=== PATIENT | female | born 1985 | race Caucasian/White ===

== ENCOUNTER → 2016-08-17 | Outpatient (REF) | payer OTHER ==
[~2016-08-17] MED LIST: ADVI200T PO; ANUS2.5C2 PR; COLA100C PO; FEOS200T2 PO; MOM30SS FT; NUVAMIS2 VA; PRENTAB7 PO; TRAN200T PO; TYLE167L PO
== END ==
LOC: M LAB REF 17:11
PROVIDERS: ATTEND Physician Assistant Medical
DX: B34.9 Viral infection, unspecified (principal)

== ENCOUNTER 2017-01-18 18:56 | Emergency (ER) | payer OTHER ==
[~2017-01-18] VITALS: Ht 157.5 cm; Wt 90.4 kg
[~2017-01-18 18:56] MED LIST changes: -COLA100C PO; +COLA100C5 PO
[2017-01-18] MEDS ORDERED: LISI-538 (19:03)
[2017-01-18] MEDS ORDERED: OXYCODONE/APAP 5MG/325MG(BULK FOR ED) 1 TABLET PO ONE (21:15)
[2017-01-18] MEDS ORDERED: PERC5TAB12 PO (21:15)
[2017-01-18] MEDS ORDERED: CLEO300C2 PO (21:15)
[2017-01-18] MEDS ORDERED: LIDOCAINE VISCOUS 2% SOLN 15ML UDC TOP ONE (21:15)
[2017-01-18 21:29] VITALS: BP 178/110
== END 2017-01-18 21:40 | disposition home or self-care (01) ==
LOC: M ED 18:56
DX: K04.7 Periapical abscess without sinus (principal); I10 Essential (primary) hypertension; Z88.0 Allergy status to penicillin

== ENCOUNTER 2017-05-20 19:48 | Emergency (ER) | payer OTHER ==
[~2017-05-20] VITALS: Ht 157.5 cm; Wt 86.4 kg
[2017-05-20 19:48] VITALS: BP 149/88
[~2017-05-20 19:48] MED LIST changes: +CLEO300C2 PO; +LISI-538; +PERC5TAB12 PO
[2017-05-20] MEDS ORDERED: VENL75CA47 PO (20:07)
[2017-05-20] MEDS ORDERED: AMLO5TAB2 PO (20:07)
== END 2017-05-20 21:45 | disposition left against medical advice (07) ==
LOC: M ED 19:48
DX: R10.9 Unspecified abdominal pain (principal); Z53.21 Procedure and treatment not carried out due to patient leaving prior to being seen by health care provider

== ENCOUNTER → 2018-05-24 | Outpatient (REF) | payer OTHER ==
[2018-05-24 14:24] LABS: INFLUENZA A AMPLIFICATION NEGATIVE (NEGATIVE); INFLUENZA B AMPLIFICATION NEGATIVE (NEGATIVE)
== END ==
LOC: M LAB REF 13:33
DX: J11.1 Influenza due to unidentified influenza virus with other respiratory manifestations (principal)

== ENCOUNTER → 2018-07-30 | Outpatient (CLI) | payer OTHER ==
[~2018-07-30] MED LIST changes: +AMLO5TAB6 PO; +VENL75CA47 PO
--- NOTE | 2018-07-30 19:14 | REP ---
Lumbar spine six views History: Back pain There is no acute fracture or subluxation. The intervertebral discs are normal in height. The facet joints are normal in appearance. Impression: There is no acute fracture or subluxation. Electronically Signed by Mendoza Carlin MD 07/30/2018 07:05 P
== END ==
LOC: M WUC 18:40
PROVIDERS: ATTEND Physician Assistant
DX: M54.5 Low back pain (principal)

== ENCOUNTER → 2018-10-15 | Outpatient (REF) | payer OTHER ==
[~2018-10-15] MED LIST changes: +IBUP-1022 PO; +NIFE60TA6 PO
[2018-10-15 14:58] LABS: ALBUMIN 4.3 GM/DL (3.2-5.2); ALT/SGPT 18 U/L (12-78); BILIRUBIN,TOTAL 0.4 MG/DL (0.2-1.0); BLOOD UREA NITROGEN 9 MG/DL (7-18); CARBON DIOXIDE LEVEL 25 MEQ/L (21-32); CHLORIDE LEVEL 103 MEQ/L (98-107); CHOLESTEROL LEVEL 233 MG/DL (<200); CHOLESTEROL RISK RATIO 7.281 (<5); CREATININE FOR GFR 0.64 MG/DL (0.55-1.30); GLOMERULAR FILTRATION RATE > 60.0 (>60); GLUCOSE, FASTING 90 MG/DL (70-100); HDL CHOLESTEROL 32 MG/DL (>40); LDL CHOLESTEROL 140 MG/DL (<100); NON-HDL-C 201 MG/DL; POTASSIUM SERUM 3.8 MEQ/L (3.5-5.1); SODIUM LEVEL 136 MEQ/L (136-145); THYROID STIMULATING HORMONE 0.922 uIU/ML (0.358-3.740); TOTAL 25(OH) VITAMIN D 15.6 NG/ML (30.0-100.0); TOTAL PROTEIN 7.4 GM/DL (6.4-8.2); TRIGLYCERIDES LEVEL 306 MG/DL (<150)
== END ==
LOC: M LABDRAW1 13:21
PROVIDERS: ATTEND Nurse Practitioner Adult Health
DX: Z00.01 Encounter for general adult medical examination with abnormal findings (principal)

== ENCOUNTER 2018-10-18 14:21 | Emergency (ER) | payer OTHER ==
[~2018-10-18] VITALS: Ht 157.5 cm; Wt 91.2 kg
[~2018-10-18 14:21] MED LIST changes: -IBUP-1022 PO; -NIFE60TA6 PO
[2018-10-18] MEDS ORDERED: NIFE60TA6 PO (14:29)
[2018-10-18] MEDS ORDERED: NACL IV ONE (15:15)
[2018-10-18] MEDS ORDERED: KETAMINE IV ONE (15:15)
[2018-10-18] MEDS ORDERED: KETOROLAC 30 MG/ML VIAL (J1885) IV ONE (15:15)
[2018-10-18] MEDS ORDERED: ACETAMINOPHEN 500 MG TAB PO ONE (15:15)
[2018-10-18] MEDS ORDERED: DILUENT IV ONE (15:15)
[2018-10-18] MEDS ORDERED: ONDANSETRON 4MG/2ML VIAL (J2405) IV ONE (15:15)
--- NOTE | 2018-10-18 15:19 | REP ---
CT Head without contrast HISTORY: Headache COMPARISON: 06/12/2012 There is no intraparenchymal hemorrhage, acute infarct, mass or midline shift. The ventricular system is normal in appearance. There is no extra cerebral collection. There is no fracture. The visualized sinuses are clear. IMPRESSION: There is no intracranial lesion. Electronically Signed by Mendoza Carlin MD 10/18/2018 03:11 P
[2018-10-18] MEDS ORDERED: IBUP-1022 PO (16:39)
[2018-10-18 17:00] VITALS: BP 124/73
== END 2018-10-18 17:29 | disposition home or self-care (01) ==
LOC: M ED 14:21
DX: G43.909 Migraine, unspecified, not intractable, without status migrainosus (principal); I10 Essential (primary) hypertension; Z79.899 Other long term (current) drug therapy; Z88.0 Allergy status to penicillin
CPT/HCPCS: 70450; 96374; 96375; 99284; J1885; J2405

== ENCOUNTER 2019-01-18 12:41 | Emergency (ER) | payer OTHER ==
[~2019-01-18] VITALS: Ht 157.5 cm; Wt 86.4 kg
[~2019-01-18 12:41] MED LIST changes: +IBUP-1022 PO; +NIFE60TA6 PO
[2019-01-18] MEDS ORDERED: MELO15TA28 (12:51)
[2019-01-18] MEDS ORDERED: DULO1CAP4 (12:51)
[2019-01-18 13:39] LABS: BASO % 0.1 % (0.0-1.0); EOS % 0.4 % (0.0-3.0); HEMATOCRIT 35.8 % (36.0-47.0); HEMOGLOBIN 12.1 g/dl (12.0-15.5); LYMPH # 1.7 10^3/uL (1.5-4.5); LYMPH % 22.1 % (24.0-44.0); MEAN CORPUSCULAR HEMOGLOBIN 26.5 pg (27.0-33.0); MEAN CORPUSCULAR HGB CONC 33.8 g/dl (32.0-36.5); MEAN CORPUSCULAR VOLUME 78.5 fl (80.0-96.0); MONO # 0.3 10^3/uL (0.0-0.8); MONO % 4.4 % (0.0-5.0); NEUTROPHILS # 5.4 10^3/uL (1.8-7.7); NEUTROPHILS % 72.7 % (36.0-66.0); PLATELET COUNT, AUTOMATED 353 10^3/uL (150-450); RED BLOOD COUNT 4.56 10^6/uL (4.00-5.40); WHITE BLOOD COUNT 7.5 10^3/uL (4.0-10.0)
[2019-01-18] MEDS ORDERED: NIFEdipine 30 MG XL TAB PO ONE (14:00)
[2019-01-18 14:08] LABS: BLOOD UREA NITROGEN 7 MG/DL (7-18); CALCIUM LEVEL 9.1 MG/DL (8.5-10.1); CARBON DIOXIDE LEVEL 26 MEQ/L (21-32); CHLORIDE LEVEL 102 MEQ/L (98-107); CK-MB VALUE MASS 1.1 NG/ML (<3.6); CPK CREATINE PHOSPHOKINASE 99 U/L (26-192); CREATININE FOR GFR 0.81 MG/DL (0.55-1.30); GLOMERULAR FILTRATION RATE > 60.0 (>60); GLUCOSE, FASTING 155 MG/DL (70-100); MB/CK RELATIVE INDEX 1.11 (< OR =4); NT-PRO BNP 36 PG/ML (<125); POTASSIUM SERUM 3.8 MEQ/L (3.5-5.1); SODIUM LEVEL 137 MEQ/L (136-145); TROPONIN I < 0.02 NG/ML (< 0.10)
[2019-01-18 14:13] LABS: FREE THYROXINE INDEX 2.7 % (1.3-4.8); THYROID STIMULATING HORMONE 0.575 uIU/ML (0.358-3.740)
[2019-01-18 14:40] VITALS: BP 134/84
[2019-01-18 14:45] VITALS: BP 139/89
[2019-01-18] MEDS ORDERED: HYDR-3363 PO (14:46)
--- NOTE | 2019-01-18 15:02 | REP ---
Clinical: Shortness of breath . Comparison: 11/15/2014 . Technique: PA and lateral. Findings: The mediastinum and cardiac silhouette are normal. The lung reed are clear and without acute consolidation, effusion, or pneumothorax. The skeletal structures are intact and normal. Impression: 1. No acute cardiopulmonary process. Electronically Signed by David Singletary MD 01/18/2019 01:43 P
--- NOTE | 2019-01-18 16:49 | ECGEPIP ---
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
== END 2019-01-18 14:58 | disposition home or self-care (01) ==
LOC: M ED 12:41
DX: F41.0 Panic disorder [episodic paroxysmal anxiety] (principal); I10 Essential (primary) hypertension; R00.2 Palpitations; Z87.891 Personal history of nicotine dependence; Z88.0 Allergy status to penicillin; Z79.899 Other long term (current) drug therapy

== ENCOUNTER → 2019-04-17 | Outpatient (REF) | payer OTHER ==
[~2019-04-17] MED LIST changes: +DULO1CAP4; +HYDR-3363 PO; +MELO15TA28
== END ==
LOC: M LAB REF 16:10
PROVIDERS: ATTEND Physician Assistant
DX: R35.0 Frequency of micturition (principal)

== ENCOUNTER 2019-06-17 07:45 | Emergency (ER) | payer OTHER ==
[~2019-06-17] VITALS: Ht 160 cm; Wt 83.2 kg
[2019-06-17] MEDS ORDERED: CEFU1TAB22 (07:53)
[2019-06-17] MEDS ORDERED: ONDANSETRON 4MG/2ML VIAL (J2405) IV ONE (08:30)
--- NOTE | 2019-06-17 08:32 | REP ---
Head CT without contrast: History: CVA. Comparison study: October 18, 2018 and June 12, 2012 prior studies are reviewed. CT findings: Bone window settings demonstrate an intact bony calvarium. There is no evidence of skull fracture or incidental bony calvarial lesion. The visualized paranasal sinuses appear clear. No intraorbital abnormality is seen. On soft tissue window setting images; the lateral, third, and fourth ventricles are normal in size and position. Parra-white differentiation pattern is normal above and below the tentorium. There are is no evidence of intracranial hemorrhage. No mass, edema, infarction, or midline shift is seen. No extra-axial fluid collection is appreciated. Impression: Negative noncontrast head CT. Electronically Signed by Han Martin MD 06/17/2019 08:32 A
[2019-06-17] MEDS: MORPHINE 2 MG/ML 1ML VIAL (J2270) IV PRN ×2 (08:35→09:13)
[2019-06-17 08:38] LABS: BASO % 0.5 % (0.0-1.0); EOS # 0.1 10^3/uL (0.0-0.5); EOS % 2.4 % (0.0-3.0); HEMATOCRIT 33.4 % (36.0-47.0); LYMPH # 1.5 10^3/uL (1.5-5.0); LYMPH % 40.1 % (24.0-44.0); MEAN CORPUSCULAR HEMOGLOBIN 26.6 pg (27.0-33.0); MEAN CORPUSCULAR HGB CONC 32.9 g/dl (32.0-36.5); MEAN CORPUSCULAR VOLUME 80.7 fl (80.0-96.0); MONO # 0.3 10^3/uL (0.0-0.8); NEUTROPHILS # 1.8 10^3/uL (1.5-8.5); NEUTROPHILS % 48.5 % (36.0-66.0); PLATELET COUNT, AUTOMATED 243 10^3/uL (150-450); RED BLOOD COUNT 4.14 10^6/uL (4.00-5.40); WHITE BLOOD COUNT 3.7 10^3/uL (4.0-10.0)
[2019-06-17] MEDS ORDERED: niCARdipine IV 40 MG in IV 1 EA IV SCH (08:47)
[2019-06-17 08:48] LABS: INR 1.09; PROTHROMBIN TIME 13.9 SECONDS (11.8-14.0)
[2019-06-17 08:49] LABS: PARTIAL THROMBOPLASTIN TIME 34.5 SECONDS (25.0-38.4)
--- NOTE | 2019-06-17 08:54 | REP ---
Chest x-ray: Single view. History: CVA. Comparison chest x-ray: January 18, 2019. Findings: There is an infiltrate in the right lower lobe region consistent with pneumonia. Monitoring electrodes are seen. Lung reed are otherwise clear. The heart is not enlarged. Pulmonary vasculature is not increased. Impression: Right lower lobe infiltrate consistent with pneumonia. Electronically Signed by Han Martin MD 06/17/2019 08:45 A
[2019-06-17] MEDS ORDERED: amLODIPine 5 MG TAB PO ONE (09:00)
[2019-06-17] MEDS ORDERED: MORPHINE 2 MG/ML 1ML VIAL (J2270) IV PRN (09:00)
[2019-06-17] MEDS ORDERED: METOCLOPRAMIDE INJ 10MG/2ML VIAL (J2765) IV ONE (09:00)
[2019-06-17] MEDS ORDERED: KETOROLAC 30 MG/ML VIAL (J1885) IV ONE (09:00)
[2019-06-17] MEDS ORDERED: VALSARTAN 80 MG TAB (DIOVAN) PO ONE (09:00)
[2019-06-17] MEDS ORDERED: ACETAMINOPHEN 500 MG TAB PO ONE (09:00)
[2019-06-17 09:10] LABS: CK-MB VALUE MASS < 1.0 NG/ML (<3.6); CPK CREATINE PHOSPHOKINASE 95 U/L (26-192); MB/CK RELATIVE INDEX 1.05 (< OR =4); TROPONIN I < 0.02 NG/ML (< 0.10)
[2019-06-17 09:12] VITALS: BP 189/85
[2019-06-17 10:05] LABS: APPEARANCE, URINE CLEAR (CLEAR); BACTERIA, URINE AUTO NEGATIVE (NEGATIVE); BILIRUBIN, URINE AUTO NEGATIVE (NEGATIVE); BLOOD, URINE BLOOD 1+ (NEGATIVE); COLOR, URINE COLORLESS (YELLOW); GLUCOSE, URINE (UA) AUTO NEGATIVE (NEGATIVE); KETONE, URINE AUTO NEGATIVE (NEGATIVE); LEUKOCYTE ESTERASE, URINE AUTO NEGATIVE (NEGATIVE); NITRITE, URINE AUTO NEGATIVE (NEGATIVE); PROTEIN, URINE AUTO NEGATIVE (NEGATIVE); RBC, URINE AUTO 1 /HPF (0-3); SPECIFIC GRAVITY URINE AUTO 1.003 (1.002-1.035); SQUAMOUS EPITHELIAL CELL UR AU 0 /HPF (0-6); UROBILINOGEN, URINE AUTO 0.2 mg/dL (0.0-2.0); WBC, URINE AUTO 0 /HPF (0-3)
[2019-06-17] MEDS ORDERED: GI COCKTAIL 50ML BTL(HYOSCYAMINE/MAALOX/LIDOCAINE VISCOUS)(1:3:1) PO ONE (10:30)
[2019-06-17] MEDS ORDERED: LORazepam 2 MG/ML VIAL (J2060) IV STA (12:18)
--- NOTE | 2019-06-17 13:16 | REP ---
MRI brain without contrast: History: Severe headache . Comparison study: Today's CT study of the brain. Technique: Axial and sagittal imaging planes are utilized for T1 and T2-weighted scans. Sequences include spin-echo, fast spin echo, FLAIR, and diffusion weighted sequences. MRI findings: No bony calvarial lesion is seen. Craniocervical junction and upper cervical cord are normal in appearance. There is no MR evidence of significant paranasal sinus disease. No intraorbital abnormality is seen. The lateral, third, and fourth ventricles are normal in size and position. Parra-white differentiation pattern is intact above and below the tentorium. There is no evidence of intracranial hemorrhage. No mass, infarction, extra-axial fluid collection or midline shift is seen. No abnormal white matter lesion is seen. Impression: Negative noncontrast brain MRI study. Electronically Signed by Han Martin MD 06/17/2019 01:08 P
[2019-06-17 13:23] VITALS: BP 145/89
--- NOTE | 2019-06-17 13:25 | REP ---
MR angiography the brain without contrast: History: Severe headache. Technique: 3-D [id number] MR angiography of the brain is acquired in the usual fashion and maximal intensity projection images were generated in rotational format about the vertical and horizontal axes. In addition, source axial T1-weighted images are viewed in cine mode. MR angiographic findings: The distal vertebral arteries are patent, the right vertebral artery squared is smaller than the left. Basilar artery is a little tortuous but widely patent. The posterior cerebral and superior cerebellar vessels are normal and symmetric. The distal internal carotid arteries are unremarkable. Anterior and middle cerebral arteries appear intact. There is no visible garza aneurysm or arteriovenous malformation. Impression: Asymmetric vertebral arteries, left dominant. Otherwise unremarkable MR angiography the brain. Electronically Signed by Han Martin MD 06/17/2019 01:17 P
[2019-06-17] MEDS ORDERED: DOXY100C37 PO (13:31)
[2019-06-17] MEDS ORDERED: AMLO5TAB6 PO (13:37)
[2019-06-17] MEDS ORDERED: VALS1TAB67 PO (13:37)
--- NOTE | 2019-06-18 08:43 | ECGEPIP ---
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
--- NOTE | 2019-06-18 08:46 | ECGEPIP ---
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
[2019-06-18] MEDS ORDERED: LOSA50TA88 (10:51)
[2019-06-18] MEDS ORDERED: KETO10TAB PO (15:09)
[2019-06-24 00:07] LABS: ALDOSTERONE 2.2 ng/dL (0.0-30.0); RENIN LEVEL <0.167 ng/mL/hr (0.167-5.380)
== END 2019-06-17 13:42 | disposition home or self-care (01) ==
LOC: M ED 07:45
DX: I10 Essential (primary) hypertension (principal); R51 Headache; J18.9 Pneumonia, unspecified organism; Z79.899 Other long term (current) drug therapy; Z88.0 Allergy status to penicillin; Z88.8 Allergy status to other drugs, medicaments and biological substances
CPT/HCPCS: 36415; 70450; 70544; 70551; 71045; 80047; 81001; 82088; 82550; 82553; 84244; 84702; 85025; 85610; 85730; 86850; 86900; 86901; 93005; 93041; 94760; 96374; 96375; 96376; 99285; J1885; J2060; J2270; J2405

== ENCOUNTER 2019-06-18 10:42 | Emergency (ER) | payer OTHER ==
[~2019-06-18] VITALS: Ht 160 cm; Wt 87.0 kg
[~2019-06-18 10:42] MED LIST changes: +CEFU1TAB22; +DOXY100C37 PO; +VALS1TAB67 PO
[2019-06-18] MEDS ORDERED: LOSA50TA88 (10:51)
[2019-06-18] MEDS ORDERED: NS 1,000 ML IV ONE (11:15)
[2019-06-18] MEDS ORDERED: diphenhydrAMINE INJ 50MG/ML VIAL (J1200) IV ONE (11:15)
[2019-06-18] MEDS ORDERED: KETOROLAC 30 MG/ML VIAL (J1885) IV ONE (11:15)
[2019-06-18] MEDS: METOCLOPRAMIDE INJ 10MG/2ML VIAL (J2765) IV ONE ×2 (11:30→11:32)
[2019-06-18] MEDS ORDERED: ONDANSETRON 4MG/2ML VIAL (J2405) IV ONE (12:00)
[2019-06-18] MEDS ORDERED: MAG SULF 1GM/100ML (MAG RUN) 1 GM in IV 1 EA IV ONE (12:15)
[2019-06-18] MEDS ORDERED: ACETAMINOPHEN 500 MG TAB PO ONE (12:15)
[2019-06-18] MEDS ORDERED: cloNIDine 0.1 MG TAB PO ONE (13:00)
[2019-06-18] MEDS ORDERED: MORPHINE 4 MG/ML 1ML VIAL/SYRINGE (J2270) IV ONE (14:15)
[2019-06-18] MEDS ORDERED: KETO10TAB PO (15:09)
[2019-06-18 15:30] VITALS: BP 153/106
== END 2019-06-18 15:32 | disposition home or self-care (01) ==
LOC: M ED 10:42
DX: R51 Headache (principal); I10 Essential (primary) hypertension; J18.9 Pneumonia, unspecified organism; Z84.89 Family history of other specified conditions; Z79.899 Other long term (current) drug therapy; Z88.0 Allergy status to penicillin; Z88.8 Allergy status to other drugs, medicaments and biological substances
CPT/HCPCS: 96365; 96375; 99284; J1200; J1885; J2270; J2405; J3475

== ENCOUNTER → 2019-06-30 | Outpatient (REF) | payer OTHER, MEDICAID ==
[~2019-06-30] MED LIST changes: +KETO10TAB PO; +LOSA50TA88
[2019-06-30 19:21] LABS: BASO % 0.2 % (0.0-1.0); EOS # 0.1 10^3/uL (0.0-0.5); EOS % 0.8 % (0.0-3.0); HEMATOCRIT 34.1 % (36.0-47.0); HEMOGLOBIN 11.1 g/dl (12.0-15.5); LYMPH % 30.3 % (24.0-44.0); MEAN CORPUSCULAR HEMOGLOBIN 27.3 pg (27.0-33.0); MEAN CORPUSCULAR HGB CONC 32.6 g/dl (32.0-36.5); MONO # 0.3 10^3/uL (0.0-0.8); MONO % 4.5 % (0.0-5.0); NEUTROPHILS # 4.3 10^3/uL (1.5-8.5); PLATELET COUNT, AUTOMATED 354 10^3/uL (150-450); RED BLOOD COUNT 4.06 10^6/uL (4.00-5.40); WHITE BLOOD COUNT 6.6 10^3/uL (4.0-10.0)
[2019-06-30 19:35] LABS: ALBUMIN 3.8 GM/DL (3.2-5.2); ALT/SGPT 21 U/L (12-78); BILIRUBIN,TOTAL 0.3 MG/DL (0.2-1.0); BLOOD UREA NITROGEN 6 MG/DL (7-18); CALCIUM LEVEL 8.7 MG/DL (8.5-10.1); CARBON DIOXIDE LEVEL 27 MEQ/L (21-32); CHLORIDE LEVEL 103 MEQ/L (98-107); CHOLESTEROL LEVEL 203 MG/DL (<200); CHOLESTEROL RISK RATIO 4.511 (<5); CREATININE FOR GFR 0.76 MG/DL (0.55-1.30); GLOMERULAR FILTRATION RATE > 60.0 (>60); GLUCOSE, FASTING 147 MG/DL (70-100); HDL CHOLESTEROL 45 MG/DL (>40); LDL CHOLESTEROL 101 MG/DL (<100); NON-HDL-C 158 MG/DL; POTASSIUM SERUM 3.6 MEQ/L (3.5-5.1); SODIUM LEVEL 138 MEQ/L (136-145); THYROID STIMULATING HORMONE 0.907 uIU/ML (0.358-3.740); TOTAL PROTEIN 7.1 GM/DL (6.4-8.2); TRIGLYCERIDES LEVEL 285 MG/DL (<150)
[2019-06-30 19:39] LABS: HEMOGLOBIN A1c 4.8 %
== END ==
LOC: M LAB REF 18:27
PROVIDERS: ATTEND Nurse Practitioner Adult Health
DX: Z00.00 Encounter for general adult medical examination without abnormal findings (principal)

== ENCOUNTER 2019-08-13 03:52 | Emergency (ER) | payer OTHER ==
[~2019-08-13] VITALS: Ht 160 cm; Wt 81.9 kg
[~2019-08-13 03:52] MED LIST changes: +NIFE1TAB51 PO; -NIFE60TA6 PO
[2019-08-13] MEDS ORDERED: LOSA100T50 PO (04:04)
[2019-08-13] MEDS ORDERED: HYDR-3363 PO (04:04)
[2019-08-13] MEDS ORDERED: TIZA4TAB4 PO (04:04)
[2019-08-13] MEDS ORDERED: METO1TAB32 PO (04:04)
[2019-08-13] MEDS ORDERED: ONDA4TAB6 PO (04:04)
[2019-08-13] MEDS ORDERED: VENL37.598 PO (04:04)
[2019-08-13 05:06] LABS: BASO % 0.2 % (0.0-1.0); EOS % 0.4 % (0.0-3.0); HEMATOCRIT 37.8 % (36.0-47.0); HEMOGLOBIN 12.4 g/dl (12.0-15.5); LYMPH # 1.6 10^3/uL (1.5-5.0); LYMPH % 31.9 % (24.0-44.0); MEAN CORPUSCULAR HEMOGLOBIN 26.8 pg (27.0-33.0); MEAN CORPUSCULAR HGB CONC 32.8 g/dl (32.0-36.5); MEAN CORPUSCULAR VOLUME 81.8 fl (80.0-96.0); MONO # 0.3 10^3/uL (0.0-0.8); MONO % 6.9 % (0.0-5.0); NEUTROPHILS % 60.4 % (36.0-66.0); PLATELET COUNT, AUTOMATED 283 10^3/uL (150-450); RED BLOOD COUNT 4.62 10^6/uL (4.00-5.40)
[2019-08-13 05:29] LABS: ALT/SGPT 37 U/L (12-78); BILIRUBIN,DIRECT 0.2 MG/DL (0.0-0.2); BILIRUBIN,TOTAL 0.4 MG/DL (0.2-1.0); BLOOD UREA NITROGEN 10 MG/DL (7-18); CALCIUM LEVEL 8.5 MG/DL (8.5-10.1); CARBON DIOXIDE LEVEL 31 MEQ/L (21-32); CHLORIDE LEVEL 102 MEQ/L (98-107); CREATININE FOR GFR 0.71 MG/DL (0.55-1.30); GLOMERULAR FILTRATION RATE > 60.0 (>60); GLUCOSE, FASTING 111 MG/DL (70-100); LIPASE 68 U/L (73-393); POTASSIUM SERUM 3.6 MEQ/L (3.5-5.1); SODIUM LEVEL 138 MEQ/L (136-145); TOTAL PROTEIN 7.3 GM/DL (6.4-8.2)
[2019-08-13 05:33] LABS: HCG, SERUM QUALITATIVE NEGATIVE (NEGATIVE)
[2019-08-13] MEDS ORDERED: ISOVUE-370 76% 100ML VIAL (Q9967) As Ordered ONE (07:13)
[2019-08-13] MEDS ORDERED: NS 1,000 ML IV SCH (07:15)
[2019-08-13] MEDS ORDERED: PROMETHAZINE INJ 25 MG/ML VIAL (J2550) IV ONE (07:15)
--- NOTE | 2019-08-13 08:35 | REPVR ---
PROCEDURE INFORMATION: Exam: CT Abdomen And Pelvis With Contrast Exam date and time: 08/13/2019 7:03 AM Age: 34 years old Clinical indication: Abdominal pain; Generalized; Patient HX: Skin problem/vomits; Additional info: Abd pain TECHNIQUE: Imaging protocol: Computed tomography of the abdomen and pelvis with intravenous contrast. Radiation optimization: All CT scans at this facility use at least one of these dose optimization techniques: automated exposure control; mA and/or kV adjustment per patient size (includes targeted exams where dose is matched to clinical indication); or iterative reconstruction. Contrast material: ISO; Contrast volume: 100 ml; Contrast route: AC; COMPARISON: No relevant prior studies available. FINDINGS: Liver: The liver is mildly enlarged and demonstrates low attenuation when compared with the spleen. 1 cm low-density lesion in the posterior right liver lobe. Subtle small area of low attenuation adjacent to the falciform ligament. Gallbladder and bile ducts: Mildly dilated gallbladder lumen, a nonspecific finding. Pancreas: Unremarkable. Spleen: The spleen measures upper normal limits. Adrenals: Unremarkable. Kidneys and ureters: Subcentimeter hypodensity upper pole right kidney is too small to characterize by CT criteria. No hydronephrosis bilaterally. Stomach and bowel: Nonspecific nondilated fluid-filled colonic segments. Nonspecific nondilated fluid-filled distal small bowel. Appendix: Unremarkable appendix. Intraperitoneal space: Trace free fluid in the pelvis. Vasculature: No abdominal aortic aneurysm. Lymph nodes: Small nonspecific bilateral inguinal lymph nodes noted. Several small mesenteric lymph nodes centrally in the abdomen. Bladder: Under distended urinary bladder. Reproductive: Low attenuating lesion right adnexa measures 3.4 cm x 3.1 cm. Bones/joints: Unremarkable. Soft tissues: Tiny fat containing umbilical hernia. IMPRESSION: 1. Nonspecific nondilated fluid-filled distal small bowel and colonic segments. This may represent early enterocolitis changes. 2. Right adnexal cyst, functional by size criteria. 3. Low-attenuation of the liver when compared with the spleen may represent fatty infiltration versus early phase imaging. 1 cm low-density lesion in the right liver lobe may represent cyst, adenoma, among others. Small area of low attenuation adjacent to the falciform ligament favors focal fatty sparing. Ultrasound may be performed for further assessment. 4. Mildly dilated gallbladder lumen, a nonspecific finding. Ultrasound may be performed for further assessment as clinically warranted. 5. Several small mesenteric lymph nodes centrally in the abdomen. Differential diagnosis includes mesenteric adenitis, viral inflammatory disease, among others. Electronically signed by: Nyasia Snow On 08/13/2019 08:35:11 AM
[2019-08-13] MEDS ORDERED: PROM50TA4 PO (08:47)
[2019-08-13 09:08] VITALS: BP 163/97
--- NOTE | 2019-08-13 14:44 | ED PDOC ---
Post-Departure Follow-Up giselle ryder faxed formal report of ct abd/p for fu Munira Wylie MD Aug 13, 2019 14:44
== END 2019-08-13 09:08 | disposition home or self-care (01) ==
LOC: M ED 03:52
DX: K52.9 Noninfective gastroenteritis and colitis, unspecified (principal); R11.2 Nausea with vomiting, unspecified; R63.8 Other symptoms and signs concerning food and fluid intake; I10 Essential (primary) hypertension; N83.8 Other noninflammatory disorders of ovary, fallopian tube and broad ligament; Z79.899 Other long term (current) drug therapy; Z88.0 Allergy status to penicillin; Z88.8 Allergy status to other drugs, medicaments and biological substances
CPT/HCPCS: 74177; 80048; 80076; 81001; 83690; 84703; 85025; 96374; 99284; Q9967

== ENCOUNTER → 2019-08-15 | Outpatient (CLI) | payer OTHER ==
[~2019-08-15] MED LIST changes: +LOSA100T50 PO; +METO1TAB32 PO; +ONDA4TAB6 PO; +PROM50TA4 PO; +TIZA4TAB4 PO; +VENL37.598 PO
--- NOTE | 2019-08-15 09:56 | REP ---
Complete abdomen ultrasound and bilateral renal artery Doppler ultrasound : Complete abdomen ultrasound: There is no cholelithiasis, gallbladder wall thickening or pericholecystic fluid. There is no intrahepatic or extrahepatic biliary duct dilatation. The common biliary duct measures 4.3 mm in diameter. Recent abdomen/pelvis CT dated 08/13/2019 a 1 cm hypodensity was identified in the right lobe of the liver. On the ultrasound study today is 0.9 cm cyst is identified in the right lobe of the liver. No other hepatic masses or cysts are identified. The hepatic parenchyma is otherwise is unremarkable. The visualized areas of the pancreas are unremarkable. Portions of the pancreas are obscured by bowel gas. The spleen measures 12.4413 x 11.4 cm and is normal size. The right kidney measures 11.7 x 4.8 x 4.7 cm and the left kidney measures 11.3 x 5.2 x 3.6 cm. The kidneys are normal size. There are no dominant renal masses or cyst. There is no hydronephrosis. No renal calculi. There is no abdominal aortic aneurysm. The proximal aorta measures 2.7 cm diameter, mid aorta 1.9 cm and distal aorta 1.6 cm. There is no free abdominal fluid. Impression: Essentially negative complete abdominal ultrasound. There is a 0.9 cm cyst in the hepatic right lobe. Portions of the calf pancreas are obscured by bowel gas. Bilateral renal artery Doppler ultrasound: The studies performed for resistant hypertension. Renal Vascular Doppler Ultrasound: Right Kidney: Renal length 0.7 cm. Extraparenchymal renal artery. Peak renal artery flow velocity the 116 cm/ sec Peak aortic velocity: 95.5 cm/sec Renal/aortic ratio: 1.2. Intraparenchymal renal arteries. Resistive index: upper pole the 0.6 mid pole 0.6 lower pole 0.65 Acceleration time: upper pole 0.02 mid pole 0.03 lower pole 0.03 Left kidney: Renal length 11.3 cm. Extraparenchymal renal artery: Peak renal artery flow velocity: 128 cm/sec. Peak aortic velocity: 95.5 cm/sec Renal/aortic ratio: 1.3 Intraparenchymal renal arteries: Resistive index: Upper pole 0.62 mid pole 0.65 lower pole 0.60 Acceleration time: Upper pole 0.04 mid pole 0.03 lower pole 0.03. Impression: There is no Doppler ultrasound evidence of renal artery stenosis. Electronically Signed by Navid Dong MD 08/15/2019 09:47 A
--- NOTE | 2019-08-15 20:04 | ECHO ---
DATE OF PROCEDURE: 08/15/2019 Date of : 1985 Age: 34 Gender: Female. Height: 63 inches Weight: 180 pounds Body surface area: 1.85 meters squared Outpatient. REFERRING PROVIDER: Jenny Arias NP INDICATION: Hypertension. MEASUREMENTS: 2D Measurements: RV: 3.6 cm LV: 4.8 cm Septum: 1.0 cm Posterior wall: 1.0 cm Aortic root: 3.0 cm LA: 3.8 cm LVEF: 65% Doppler Measurements: AV: 1.22 meters per second LVOT: 0.93 meters per second LVOT diameter: 2.0 cm MV-E: 89, A: 59, EA ratio: 1.5 Early mitral deceleration time: 240 ms. E prime medial: 8.7, A prime medial: 8.8, E prime lateral: 12.8. Average E/E prime ratio: 8.3/PCWP: 12.2 mmHg PV: 0.8 meters per second Pulmonary artery acceleration time: 134 milliseconds RVSP: 23 mmHg IVC: 1.7 cm COMMENTS: Normal sinus rhythm without intraventricular conduction disturbance. M-mode and two-dimensional echocardiography were performed with pulsed, continuous wave, color flow and tissue Doppler studies. Normal left ventricular size, wall thickness and wall motion. Normal left atrial size and Doppler assessment of left ventricular (LV) diastolic function and estimated mean left atrial pressure. Normal right heart chamber sizes and motion with normal pulmonary arterial pressure. Normal inferior vena cava (IVC) size and collapse against an elevated central venous pressure. Normal appearing and functioning valvular structures. No apparent intracardiac mass or pericardial effusion. MTDD
== END ==
LOC: M RAD 07:55
PROVIDERS: ATTEND Nurse Practitioner Adult Health
DX: I10 Essential (primary) hypertension (principal); K76.89 Other specified diseases of liver

== ENCOUNTER → 2019-08-15 | Outpatient (CLI) | payer OTHER | LOC: M RAD 07:57 | PROVIDERS: ATTEND Emergency Medicine | DX: K76.89 Other specified diseases of liver (principal); Z53.9 Procedure and treatment not carried out, unspecified reason ==

== ENCOUNTER → 2019-08-27 | Outpatient (REF) | payer OTHER ==
[2019-08-27 12:49] LABS: INFLUENZA A AMPLIFICATION NEGATIVE (NEGATIVE); INFLUENZA B AMPLIFICATION POSITIVE (NEGATIVE)
== END ==
LOC: M LAB REF 11:33
PROVIDERS: ATTEND Physician Assistant
DX: J11.1 Influenza due to unidentified influenza virus with other respiratory manifestations (principal)

== ENCOUNTER 2019-08-29 10:27 | Emergency (ER) | payer OTHER ==
[~2019-08-29] VITALS: Ht 160 cm; Wt 81.8 kg
[2019-08-29] MEDS ORDERED: ONDANSETRON 4MG/2ML VIAL (J2405) IV ONE (11:15)
[2019-08-29 11:37] LABS: BASO % 0.2 % (0.0-1.0); HEMATOCRIT 35.8 % (36.0-47.0); HEMOGLOBIN 11.9 g/dl (12.0-15.5); LYMPH # 0.8 10^3/uL (1.5-5.0); LYMPH % 9.3 % (24.0-44.0); MEAN CORPUSCULAR HGB CONC 33.2 g/dl (32.0-36.5); MEAN CORPUSCULAR VOLUME 81.4 fl (80.0-96.0); MONO # 0.7 10^3/uL (0.0-0.8); MONO % 7.3 % (0.0-5.0); NEUTROPHILS # 7.4 10^3/uL (1.5-8.5); NEUTROPHILS % 82.9 % (36.0-66.0); PLATELET COUNT, AUTOMATED 280 10^3/uL (150-450); WHITE BLOOD COUNT 8.9 10^3/uL (4.0-10.0)
[2019-08-29 12:01] LABS: ALT/SGPT 25 U/L (12-78); BILIRUBIN,DIRECT 0.2 MG/DL (0.0-0.2); BILIRUBIN,TOTAL 0.6 MG/DL (0.2-1.0); BLOOD UREA NITROGEN 9 MG/DL (7-18); CALCIUM LEVEL 9.2 MG/DL (8.5-10.1); CARBON DIOXIDE LEVEL 19 MEQ/L (21-32); CHLORIDE LEVEL 100 MEQ/L (98-107); CREATININE FOR GFR 0.75 MG/DL (0.55-1.30); GLOMERULAR FILTRATION RATE > 60.0 (>60); GLUCOSE, FASTING 103 MG/DL (70-100); HCG, SERUM QUALITATIVE NEGATIVE (NEGATIVE); POTASSIUM SERUM 3.3 MEQ/L (3.5-5.1); SODIUM LEVEL 133 MEQ/L (136-145); TOTAL PROTEIN 7.9 GM/DL (6.4-8.2)
[2019-08-29] MEDS ORDERED: KETOROLAC 30 MG/ML VIAL (J1885) IV ONE (12:30)
[2019-08-29] MEDS ORDERED: NS 1,000 ML IV ONE (12:30)
--- NOTE | 2019-08-29 12:30 | REP ---
Portable chest, 12:16 p.m., single AP view with the patient sitting: Comparison is the portable chest dated 06/17/2019. The lung reed are clear. The cardiac size is normal. The eugenia, mediastinum, and skeletal structures are unremarkable. Impression: Negative portable chest. The right lower lobe infiltrate identified on the previous study has resolved. Electronically Signed by Navid Dong MD 08/29/2019 12:22 P
[2019-08-29] MEDS ORDERED: ISOVUE-370 76% 100ML VIAL (Q9967) As Ordered ONE (12:36)
[2019-08-29] MEDS ORDERED: PROMETHAZINE INJ 25 MG/ML VIAL (J2550) IV ONE (13:30)
--- NOTE | 2019-08-29 13:36 | REP ---
CT of the abdomen and pelvis with IV contrast, without bowel contrast: Comparison is 08/13/2019. The study is performed for right lower quadrant pain. The visualized lung reed are unremarkable. The hepatic parenchyma is unremarkable except for A 1 cm cyst posteriorly in the right lobe, unchanged. The gallbladder, pancreas and spleen are unremarkable. The adrenals, kidneys and abdominal aorta are unremarkable. There is no retroperitoneal adenopathy or mass. There is no bowel distension or obstruction. The mesentery is unremarkable. There are a few normal-size nodes identified incidentally. There is no bowel distension or obstruction. Many of the small bowel loops are fluid filled. This is nonspecific but could represent enteritis in the appropriate clinical setting. The colon is unremarkable. Pelvis: The appendix is unremarkable. The terminal ileum is unremarkable. The uterus is unremarkable. There is a 4.5 cm right adnexal cyst. This previously measured 3.4 cm. The left adnexa is unremarkable. There is no pelvic free fluid. The uterus and bladder are unremarkable. There is no pelvic ascites. Impression: There is a right adnexal cyst now measuring 4.5 cm. This previously measured 3.4 cm. There is no free fluid. There is fluid in many nondistended small bowel loops. This is nonspecific but could represent enteritis in the appropriate clinical setting. 1 cm hepatic cyst. Otherwise, negative CT of the abdomen and pelvis. Electronically Signed by Navid Dong MD 08/29/2019 01:28 P
[2019-08-29] MEDS ORDERED: PROM50TA4 PO (14:38)
[2019-08-29 14:58] VITALS: BP 136/85
--- NOTE | 2019-08-29 21:54 | ECGEPIP ---
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
== END 2019-08-29 14:59 | disposition home or self-care (01) ==
LOC: M ED 10:27
DX: J11.1 Influenza due to unidentified influenza virus with other respiratory manifestations (principal); E86.0 Dehydration; I10 Essential (primary) hypertension; K76.89 Other specified diseases of liver; N83.291 Other ovarian cyst, right side; Z79.899 Other long term (current) drug therapy; Z88.0 Allergy status to penicillin; Z88.8 Allergy status to other drugs, medicaments and biological substances
CPT/HCPCS: 36415; 71045; 74177; 80048; 80076; 81001; 83605; 84703; 85025; 87040; 93005; 93041; 94760; 96374; 96375; 99285; J1885; J2405; Q9967

== ENCOUNTER 2019-09-01 19:02 | Emergency (ER) | payer OTHER ==
[~2019-09-01] VITALS: Ht 160 cm; Wt 81.8 kg
[2019-09-01 19:04] VITALS: BP 140/82
== END 2019-09-01 21:07 | disposition left against medical advice (07) ==
LOC: M ED 19:02
DX: Z53.21 Procedure and treatment not carried out due to patient leaving prior to being seen by health care provider (principal)

== ENCOUNTER 2019-09-02 20:54 | Emergency (ER) | payer OTHER ==
[~2019-09-02] VITALS: Ht 160 cm; Wt 180.0 kg
[2019-09-02 22:40] LABS: EOS % 0.8 % (0.0-3.0); HEMATOCRIT 34.6 % (36.0-47.0); HEMOGLOBIN 11.5 g/dl (12.0-15.5); LYMPH # 2.1 10^3/uL (1.5-5.0); LYMPH % 42.9 % (24.0-44.0); MEAN CORPUSCULAR HEMOGLOBIN 26.7 pg (27.0-33.0); MEAN CORPUSCULAR HGB CONC 33.2 g/dl (32.0-36.5); MEAN CORPUSCULAR VOLUME 80.5 fl (80.0-96.0); MONO # 0.4 10^3/uL (0.0-0.8); MONO % 7.4 % (0.0-5.0); NEUTROPHILS # 2.4 10^3/uL (1.5-8.5); NEUTROPHILS % 48.7 % (36.0-66.0); PLATELET COUNT, AUTOMATED 374 10^3/uL (150-450); WHITE BLOOD COUNT 4.9 10^3/uL (4.0-10.0)
[2019-09-02] MEDS ORDERED: KETOROLAC 30 MG/ML VIAL (J1885) IV ONE (23:00)
[2019-09-02] MEDS ORDERED: NS 1,000 ML IV ONE (23:00)
[2019-09-02] MEDS ORDERED: METOCLOPRAMIDE INJ 10MG/2ML VIAL (J2765) IV ONE (23:00)
[2019-09-02 23:01] LABS: HCG, SERUM QUALITATIVE NEGATIVE (NEGATIVE)
[2019-09-02 23:03] LABS: ALBUMIN 3.8 GM/DL (3.2-5.2); ALT/SGPT 21 U/L (12-78); BILIRUBIN,DIRECT < 0.1 MG/DL (0.0-0.2); BILIRUBIN,TOTAL 0.2 MG/DL (0.2-1.0); BLOOD UREA NITROGEN 7 MG/DL (7-18); CALCIUM LEVEL 9.5 MG/DL (8.5-10.1); CARBON DIOXIDE LEVEL 24 MEQ/L (21-32); CHLORIDE LEVEL 101 MEQ/L (98-107); CREATININE FOR GFR 0.61 MG/DL (0.55-1.30); GLOMERULAR FILTRATION RATE > 60.0 (>60); GLUCOSE, FASTING 108 MG/DL (70-100); LIPASE 70 U/L (73-393); POTASSIUM SERUM 3.4 MEQ/L (3.5-5.1); SODIUM LEVEL 138 MEQ/L (136-145); TOTAL PROTEIN 8.1 GM/DL (6.4-8.2)
[2019-09-02] MEDS ORDERED: ONDANSETRON 4MG/2ML VIAL (J2405) IV ONE (23:30)
[2019-09-02] MEDS ORDERED: HALOPERIDOL 5 MG/ML VIAL (J1630) IV ONE (23:45)
[2019-09-02] MEDS ORDERED: MORPHINE 4 MG/ML 1ML VIAL/SYRINGE (J2270) IV ONE (23:45)
[2019-09-02] MEDS ORDERED: ISOVUE-370 76% 100ML VIAL (Q9967) As Ordered ONE (23:51)
--- NOTE | 2019-09-03 00:46 | REPVR ---
PROCEDURE INFORMATION: Exam: CT Abdomen And Pelvis With Contrast Exam date and time: 09/02/2019 11:44 PM Age: 34 years old Clinical indication: Vomiting; Patient HX: Flu + vomits; Additional info: Abd pain, vomiting with all po TECHNIQUE: Imaging protocol: Computed tomography of the abdomen and pelvis with intravenous contrast. Radiation optimization: All CT scans at this facility use at least one of these dose optimization techniques: automated exposure control; mA and/or kV adjustment per patient size (includes targeted exams where dose is matched to clinical indication); or iterative reconstruction. Contrast material: ISO; Contrast volume: 100 ml; Contrast route: AC; COMPARISON: CT ABD PELVIS WITH CONTRAST 08/29/2019 1:01 PM FINDINGS: Liver: Small cyst in the right lobe of the liver. Mild hepatomegaly. Liver is otherwise unremarkable. Gallbladder and bile ducts: Normal. No calcified stones. No ductal dilation. Pancreas: Normal. No ductal dilation. Spleen: Mild splenomegaly. Adrenals: Normal. No mass. Kidneys and ureters: Normal. No hydronephrosis. Stomach and bowel: Unremarkable. No obstruction. No mucosal thickening. Appendix: No evidence of appendicitis. Intraperitoneal space: Unremarkable. No free air. No significant fluid collection. Vasculature: Unremarkable. No abdominal aortic aneurysm. Lymph nodes: Unremarkable. No enlarged lymph nodes. Bladder: Unremarkable as visualized. Reproductive: 4.6 cm simple cysts in the right ovary. Uterus and adnexa are otherwise unremarkable. Bones/joints: Unremarkable. No acute fracture. Soft tissues: Small fat-containing umbilical hernia. IMPRESSION: 1. Mild hepatosplenomegaly. 2. No acute findings. Electronically signed by: Eduardo Nelson On 09/03/2019 00:45:48 AM
[2019-09-03] MEDS ORDERED: diphenhydrAMINE INJ 50MG/ML VIAL (J1200) IV STA (00:53)
[2019-09-03] MEDS ORDERED: hydrOXYzine 50 MG TAB PO STA (01:18)
[2019-09-03] MEDS ORDERED: NS 1,000 ML IV ONE (01:30)
[2019-09-03] MEDS ORDERED: PROM12SU PR (02:28)
[2019-09-03] MEDS ORDERED: LOSARTAN 50 MG TAB PO ONE (02:30)
[2019-09-03] MEDS ORDERED: METOPROLOL SUCC *XL* 25MG TAB (TopROL *XL*) PO ONE (02:30)
[2019-09-03 02:40] VITALS: BP 181/106
== END 2019-09-03 02:54 | disposition home or self-care (01) ==
LOC: M ED 20:54
DX: R11.2 Nausea with vomiting, unspecified (principal); R10.9 Unspecified abdominal pain; M79.10 Myalgia, unspecified site; I10 Essential (primary) hypertension; F17.200 Nicotine dependence, unspecified, uncomplicated; Z79.899 Other long term (current) drug therapy; Z88.0 Allergy status to penicillin; Z88.8 Allergy status to other drugs, medicaments and biological substances
CPT/HCPCS: 74177; 80048; 80076; 81001; 83690; 84703; 85025; 93041; 94760; 96361; 96374; 96375; 99284; J1200; J1630; J1885; J2270; J2405; Q9967

== ENCOUNTER → 2019-11-20 | Outpatient (REF) | payer OTHER ==
[~2019-11-20] MED LIST changes: +PROM12SU PR
[2019-11-20 18:02] LABS: HEMATOCRIT 34.2 % (36.0-47.0); HEMOGLOBIN 11.2 g/dl (12.0-15.5); MEAN CORPUSCULAR HEMOGLOBIN 25.3 pg (27.0-33.0); MEAN CORPUSCULAR HGB CONC 32.7 g/dl (32.0-36.5); MEAN CORPUSCULAR VOLUME 77.4 fl (80.0-96.0); PLATELET COUNT, AUTOMATED 376 10^3/uL (150-450); RED BLOOD COUNT 4.42 10^6/uL (4.00-5.40); WHITE BLOOD COUNT 5.4 10^3/uL (4.0-10.0)
[2019-11-20 18:23] LABS: HCG, SERUM QUANTITATIVE 35767 MIU/ML
[2019-11-21 08:43] LABS: HEPATITIS B SURFACE ANTIGEN NEGATIVE (NEGATIVE)
[2019-11-21 09:11] LABS: HEPATITIS C VIRUS ABY INDEX 0.1 INDEX (<0.8); HIV 1&2 SCREEN CENTAUR NEGATIVE (NEGATIVE)
== END ==
LOC: M LAB REF 17:08
PROVIDERS: ATTEND Obstetrics & Gynecology
DX: O36.80X0 Pregnancy with inconclusive fetal viability, not applicable or unspecified (principal); Z3A.00 Weeks of gestation of pregnancy not specified

== ENCOUNTER 2019-12-09 15:14 | Emergency (ER) | payer OTHER ==
[~2019-12-09] VITALS: Ht 160 cm; Wt 84.9 kg
[~2019-12-09 15:14] MED LIST changes: -LABE10TAB; -NIFE1TAB52 PO
[2019-12-09] MEDS ORDERED: LABE10TAB (15:23)
[2019-12-09] MEDS ORDERED: hydrALAZINE 20MG/ML 1ML VIAL (J0360 PER 20MG) IV ONE (16:15)
[2019-12-09 16:29] VITALS: BP 200/122
[2019-12-09 16:33] LABS: HEMATOCRIT 32.2 % (36.0-47.0); HEMOGLOBIN 10.6 g/dl (12.0-15.5); MEAN CORPUSCULAR HEMOGLOBIN 25.3 pg (27.0-33.0); MEAN CORPUSCULAR HGB CONC 32.9 g/dl (32.0-36.5); MEAN CORPUSCULAR VOLUME 76.8 fl (80.0-96.0); PLATELET COUNT, AUTOMATED 255 10^3/uL (150-450); RED BLOOD COUNT 4.19 10^6/uL (4.00-5.40); WHITE BLOOD COUNT 5.5 10^3/uL (4.0-10.0)
[2019-12-09 17:19] LABS: BLOOD UREA NITROGEN 8 MG/DL (7-18); CARBON DIOXIDE LEVEL 25 MEQ/L (21-32); CHLORIDE LEVEL 105 MEQ/L (98-107); CREATININE FOR GFR 0.57 MG/DL (0.55-1.30); GLOMERULAR FILTRATION RATE > 60.0 (>60); GLUCOSE, FASTING 139 MG/DL (70-100); POTASSIUM SERUM 3.7 MEQ/L (3.5-5.1); SODIUM LEVEL 136 MEQ/L (136-145)
[2019-12-09] MEDS ORDERED: NIFE1TAB52 PO (17:41)
[2019-12-09 18:00] VITALS: BP 146/80
--- NOTE | 2019-12-10 00:37 | ECGEPIP ---
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
== END 2019-12-09 18:16 | disposition home or self-care (01) ==
LOC: M ED 15:14
DX: O10.911 Unspecified pre-existing hypertension complicating pregnancy, first trimester (principal); I16.0 Hypertensive urgency; O99.341 Other mental disorders complicating pregnancy, first trimester; F32.9 Major depressive disorder, single episode, unspecified; F41.9 Anxiety disorder, unspecified; Z88.0 Allergy status to penicillin; Z88.8 Allergy status to other drugs, medicaments and biological substances; Z79.899 Other long term (current) drug therapy; Z3A.10 10 weeks gestation of pregnancy
CPT/HCPCS: 36415; 80048; 85027; 93005; 96374; 99284; J0360

== ENCOUNTER → 2019-12-09 | Outpatient (REF) | payer OTHER ==
[~2019-12-09] MED LIST changes: +LABE10TAB; +NIFE1TAB52 PO
[2019-12-09 18:30] LABS: CREATININE, URINE 52.2 MG/DL; URINE TOTAL PROTEIN 11.1 MG/DL (0-12)
[2019-12-09 19:39] LABS: CREATININE 24 HOUR, URINE 469.8 MG/24HR (600-1800); TOTAL PROTEIN 24 HOUR URINE 99.9 MG/24HR (50-150)
[2019-12-10 07:51] LABS: FREE T4 0.89 NG/DL (0.76-1.46); THYROID STIMULATING HORMONE 1.11 uIU/ML (0.358-3.740)
[2019-12-11 06:38] LABS: FREE T3 3.3 PG/ML (2.2-4.0)
== END ==
LOC: M LAB REF 17:22
PROVIDERS: ATTEND Obstetrics & Gynecology
DX: Z34.81 Encounter for supervision of other normal pregnancy, first trimester (principal)

== ENCOUNTER 2020-02-02 18:02 | Inpatient (IN) | payer OTHER ==
[~2020-02-02] VITALS: Ht 157.5 cm; Wt 85.1 kg
[~2020-02-02 18:02] MED LIST changes: +AMLO1TAB24 PO; -AMLO5TAB6 PO; +LABE10TAB; +NIFE1TAB52 PO
[2020-02-02] MEDS ORDERED: NIFE60TA40 (18:11)
[2020-02-02] MEDS ORDERED: LABE20TAB (18:11)
[2020-02-02] MEDS ORDERED: MORPHINE 4 MG/ML 1ML VIAL/SYRINGE (J2270) IV ONE ×3 (19:00→20:30)
[2020-02-02] MEDS: NS 1,000 ML IV SCH ×2 (19:09→20:39)
[2020-02-02 19:34] LABS: BASO % 0.2 % (0.0-1.0); EOS % 0.1 % (0.0-3.0); HEMATOCRIT 30.1 % (36.0-47.0); HEMOGLOBIN 10.6 g/dl (12.0-15.5); LYMPH # 0.9 10^3/uL (1.5-5.0); LYMPH % 5.4 % (24.0-44.0); MEAN CORPUSCULAR HGB CONC 35.2 g/dl (32.0-36.5); MEAN CORPUSCULAR VOLUME 79.6 fl (80.0-96.0); MONO # 0.7 10^3/uL (0.0-0.8); MONO % 4.3 % (0.0-5.0); NEUTROPHILS # 15.5 10^3/uL (1.5-8.5); NEUTROPHILS % 89.4 % (36.0-66.0); PLATELET COUNT, AUTOMATED 269 10^3/uL (150-450); RED BLOOD COUNT 3.78 10^6/uL (4.00-5.40); WHITE BLOOD COUNT 17.3 10^3/uL (4.0-10.0)
--- NOTE | 2020-02-02 20:32 | REPVR ---
PROCEDURE INFORMATION: Exam: US , Limited Exam date and time: 02/02/2020 8:15 PM Age: 34 years old Clinical indication: complicated by abdominal or pelvic pain; Lower; Second trimester; Gestational age or lmp: 18w3d; ; Additional info: Pain eval for live iup TECHNIQUE: Imaging protocol: Real-time ultrasound of the maternal uterus with image documentation. Exam focused on the clinical indication. COMPARISON: US OBS FOLL UP OR REPEAT EACH GES 11/25/2013 1:45 PM FINDINGS: Gestation: Gestational age is 18 weeks 3 days based on LMP with an TIFFANY of 07/03/2020. Amniotic fluid: Within the endometrial canal there is a posterior placenta demonstrated with absent amniotic fluid or any parts. MATERNAL: Cervix: There is marked expansion of the endocervical canal measuring 6.8 cm maximally within which a fetus with absent motion or cardiac activity is demonstrated. Finding consistent with intrauterine demise and imminent expulsion. IMPRESSION: 1. Within the endometrial canal there is a posterior placenta demonstrated with absent amniotic fluid or any parts. 2. There is marked expansion of the endocervical canal within which a fetus with absent motion or cardiac activity is demonstrated. Finding consistent with intrauterine demise and imminent expulsion. Electronically signed by: Obed Branch On 02/02/2020 20:32:19 PM
[2020-02-02 20:33] LABS: ALBUMIN 2.9 GM/DL (3.2-5.2); ALT/SGPT 12 U/L (12-78); BILIRUBIN,DIRECT 0.2 MG/DL (0.0-0.2); BILIRUBIN,TOTAL 0.6 MG/DL (0.2-1.0); BLOOD UREA NITROGEN 5 MG/DL (7-18); CALCIUM LEVEL 9.1 MG/DL (8.5-10.1); CARBON DIOXIDE LEVEL 21 MEQ/L (21-32); CHLORIDE LEVEL 98 MEQ/L (98-107); CREATININE FOR GFR 0.56 MG/DL (0.55-1.30); GLOMERULAR FILTRATION RATE > 60.0 (>60); GLUCOSE, FASTING 113 MG/DL (70-100); HCG, SERUM QUANTITATIVE 36569 MIU/ML; LIPASE 98 U/L (73-393); POTASSIUM SERUM 3.5 MEQ/L (3.5-5.1); SODIUM LEVEL 131 MEQ/L (136-145); TOTAL PROTEIN 6.8 GM/DL (6.4-8.2)
[2020-02-02 21:08] LABS: CHLAMYDIA DNA AMPLIFICATION NEGATIVE (NEGATIVE); GC DNA AMPLIFICATION NEGATIVE (NEGATIVE)
[2020-02-02] MEDS ORDERED: OXYTOCIN 30 UNITS IN 0.9% NaCl 500ML IV BAG (J2590) As Ordered ONE (21:10)
[2020-02-02] MEDS ORDERED: LR 1,000 ML IV SCH (21:18)
[2020-02-02] MEDS ORDERED: BUTORPHANOL 2 MG/ML INJ (J0595) As Ordered ONE (21:19)
[2020-02-02] MEDS ORDERED: PROMETHAZINE INJ 25 MG/ML VIAL (J2550) As Ordered ONE (21:19)
[2020-02-02] MEDS ORDERED: OXYTOCIN DRIP 30 UNITS in IV 1 EA IV SCH (21:24)
[2020-02-02 21:28] VITALS: BP 123/59
[2020-02-02] MEDS ORDERED: IBUP80TA PO (21:28)
[2020-02-02] MEDS ORDERED: ACETAMINOPHEN 500 MG TAB PO PRN (21:30)
[2020-02-02] MEDS ORDERED: IBUPROFEN 600MG TAB PO PRN (21:30)
[2020-02-02] MEDS ORDERED: RHOGAM 300 MCG (1500 IU) INJ (J2790) IM SCH (21:30)
[2020-02-02] MEDS ORDERED: ACETAMINOPHEN TAB 650MG DOSE (2X325MG) PO PRN (21:30)
[2020-02-02] MEDS ORDERED: IBUPROFEN 800 MG TAB PO PRN (21:30)
[2020-02-02] MEDS ORDERED: BUTORPHANOL 2 MG/ML INJ (J0595) IV ONE (21:30)
[2020-02-02] MEDS ORDERED: PROMETHAZINE INJ 25 MG/ML VIAL (J2550) IM ONE (21:30)
[2020-02-02 21:43] VITALS: BP 116/57
[2020-02-02 22:09] VITALS: BP 118/67
[2020-02-02 22:13] VITALS: BP 112/59
[2020-02-02 22:28] VITALS: BP 104/55
[2020-02-02 22:37] LABS: THYROID STIMULATING HORMONE 0.569 uIU/ML (0.358-3.740); THYROXINE (T4) 9.3 UG/DL (4.5-12.0)
[2020-02-02 22:50] VITALS: BP 104/63
[2020-02-03 02:59] VITALS: BP 144/80
[2020-02-03 03:00] VITALS: BP 127/70
--- NOTE | 2020-02-03 18:45 | HPE ---
DATE OF ADMISSION: 02/03/2020 Nyasia is a 34-year-old female, 9, para 3-0-5-3, with an estimated date of confinement (EDC) of 07/03/2020, estimated gestational age (EGA) 18 weeks gestation and 2 days who presented to the emergency room with complaints of bleeding and abdominal cramping. Upon evaluation in the emergency room, she was found to have a demise at approximately 18 weeks. She was then brought upstairs to labor and delivery for management of her demise. Upon further evaluation of this patient, patient reports contractions started a few hours ago with increased bleeding. She was given morphine intravenous (IV) in the emergency room, and her pain was still being rated at a 9/10. Upon my evaluation in labor and delivery, the patient was found to be grossly ruptured with bleeding, and the fetus was partly in the vagina. At this point a decision was made to admit the patient and proceed with the delivery of the intrauterine demise (IUFD). Her record reviewed. She had three visits in the office. PAST MEDICAL HISTORY: Significant for: 1. High blood pressure. 2. Anxiety and depression. 3. Tachycardia. PAST SURGICAL HISTORY: 1. Tonsillectomy. 2. Appendectomy. SOCIAL HISTORY: The patient denies any alcohol or drug use. REVIEW OF SYSTEMS: Unremarkable. PHYSICAL EXAMINATION: Obese female in no acute distress. Abdomen: Soft, nontender, nondistended. The patient complaining of pain, more contraction-type pain. Extremities: No clubbing, cyanosis, or edema. Vaginal exam: Grossly ruptured with bleeding coming from the cervix, fetus partly in the vagina. ASSESSMENT: Intrauterine demise at approximately 18 weeks gestation. PLAN: Admit the patient to labor and delivery. demise panel sent. Pain management discussed with the patient. Decision made at this time to proceed with the delivery. The patient and partner completely counseled.
[2020-02-04 11:00] LABS: DRVV SCREEN 42.8 SEC
[2020-02-04 11:03] LABS: PTT LUPUS TYPE ANTICOAG SCREEN 1.1 (0-1.2)
[2020-02-05 05:07] LABS: ANTI PARVO VIRUS LEVEL IGG 0.2 index (0.0-0.8); ANTI PARVO VIRUS LEVEL IgM 0.4 index (0.0-0.8); BETA-2 GLYCOPROTEIN I ABY IGA <9 (0-25); BETA-2 GLYCOPROTEIN I ABY IGG <9 (0-20); BETA-2 GLYCOPROTEIN I ABY IGM <9 (0-32); CARDIOLIPIN IGA ANTIBODY <9 APL U/mL (0-11); CARDIOLIPIN IGG ANTIBODY <9 GPL U/mL (0-14); CARDIOLIPIN IGM ANTIBODY <9 MPL U/mL (0-12)
--- NOTE | 2020-02-11 12:12 | DN ---
DATE OF DELIVERY: 02/02/2020 DELIVERY NOTE: Nyasia is a 34-year-old female, 9, para 3-0-5-3, who is admitted with an intrauterine (IUFD) at 18 weeks gestation. As soon as in labor and delivery, she became fully dilated and with significant bleeding she pushed and delivered an IUFD at approximately 18 weeks. There was no gross deformities noted. The placenta was delivered manually and appeared to be intact. Uterine and fundal massage was done. Good hemostasis noted. Pitocin IV given after delivery. The patient and partner were counseled. They both agree to a pathological evaluation of the fetus and this will be sent. Her estimated blood loss was approximately 200 mL. The patient appeared to be in stable condition.
--- NOTE | 2020-02-11 12:14 | DSES ---
DATE OF ADMISSION: 02/02/2020 DATE OF DISCHARGE: 02/03/2020 Nyasia is a 34-year-old female, 9, para 3-0-5-3, who was seen in emergency room after presenting with complaints of abdominal pain and vaginal bleeding. She was found to have an intrauterine demise at approximately 18 weeks gestation. She was then brought up to labor and delivery, became fully dilated, pushed and delivered an intrauterine (IUFD) the manual removal of the placenta. She was then observed in labor and delivery for a few hours, remained completely asymptomatic and her bleeding was in good control. At this point, she wanted to go home. She was then discharged home in stable condition. She was given instruction to followup in the office in approximately 2 weeks for a followup. She is also given a prescription for 800 mg of ibuprofen as needed for pain. She was further instructed to call if there is any severe bleeding, pain or temperature greater than 101.
== END 2020-02-03 03:10 | disposition home or self-care (01) | DRG 560 ==
LOC: M ED 18:02 → UNDOADMOB 18:03 → M LDI 18:03 → UNDODISOB 02-03 03:10
PROVIDERS: ADMIT Obstetrics & Gynecology; ATTEND Obstetrics & Gynecology
PROC: 10E0XZZ Delivery of Products of Conception, External Approach (ICD-10-PCS; principal; 2020-02-02)
DX: O73.0 Retained placenta without hemorrhage (principal); Z37.1 Single stillbirth; Z3A.18 18 weeks gestation of pregnancy; O09.523 Supervision of elderly multigravida, third trimester; O99.214 Obesity complicating childbirth

== ENCOUNTER 2020-06-20 19:45 | Emergency (ER) | payer OTHER ==
[~2020-06-20] VITALS: Ht 157.5 cm; Wt 86.4 kg
[~2020-06-20 19:45] MED LIST changes: +IBUP80TA PO; +LABE100T4; -LABE10TAB; +LABE20TAB; +NIFE60TA40
[2020-06-20] MEDS ORDERED: TIZA4TAB4 PO (19:55)
[2020-06-20] MEDS ORDERED: AMLO1TAB24 PO (19:55)
[2020-06-20] MEDS ORDERED: METO1TAB7 PO (19:55)
[2020-06-20] MEDS ORDERED: VENL75CA47 PO (19:55)
[2020-06-20] MEDS ORDERED: LOSA100T50 PO (19:55)
--- NOTE | 2020-06-20 20:17 | REPVR ---
PROCEDURE INFORMATION: Exam: XR Chest, 1 View Exam date and time: 06/20/2020 8:13 PM Age: 35 years old Clinical indication: Chest pain TECHNIQUE: Imaging protocol: XR of the chest Views: 1 view. COMPARISON: DC PORTABLE CHEST X-RAY 08/29/2019 12:15 PM FINDINGS: Lungs: Unremarkable. No consolidation. Pleural space: Unremarkable. No pleural effusion. No pneumothorax. Heart/Mediastinum: Unremarkable. No cardiomegaly. Bones/joints: Unremarkable. IMPRESSION: No acute findings. Electronically signed by: Obed Branch On 06/20/2020 20:17:50 PM
[2020-06-20 20:28] LABS: BASO % 0.2 % (0.0-1.0); EOS # 0.1 10^3/uL (0.0-0.5); EOS % 0.7 % (0.0-3.0); HEMOGLOBIN 11.2 g/dl (12.0-15.5); LYMPH # 2.3 10^3/uL (1.5-5.0); LYMPH % 25.6 % (24.0-44.0); MEAN CORPUSCULAR HEMOGLOBIN 23.7 pg (27.0-33.0); MONO # 0.4 10^3/uL (0.0-0.8); NEUTROPHILS # 6.1 10^3/uL (1.5-8.5); NEUTROPHILS % 69.3 % (36.0-66.0); PLATELET COUNT, AUTOMATED 345 10^3/uL (150-450); RED BLOOD COUNT 4.73 10^6/uL (4.00-5.40); WHITE BLOOD COUNT 8.8 10^3/uL (4.0-10.0)
[2020-06-20] MEDS ORDERED: FAMOTIDINE INJ 20MG/2ML VIAL (S0028 PER 1) IVP ONE (20:45)
[2020-06-20] MEDS ORDERED: KETOROLAC 30 MG/ML 1ML VIAL IV ONE (20:45)
[2020-06-20] MEDS ORDERED: NS 1,000 ML IV ONE (20:45)
[2020-06-20] MEDS ORDERED: GI COCKTAIL 50ML BTL(HYOSCYAMINE/MAALOX/LIDOCAINE VISCOUS)(1:3:1) PO ONE (20:45)
[2020-06-20] MEDS ORDERED: ONDANSETRON 4MG/2ML VIAL IV ONE (20:45)
[2020-06-20 20:57] LABS: ALBUMIN 3.9 GM/DL (3.2-5.2); ALT/SGPT 15 U/L (12-78); BILIRUBIN,DIRECT < 0.1 MG/DL (0.0-0.2); BILIRUBIN,TOTAL 0.3 MG/DL (0.2-1.0); BLOOD UREA NITROGEN 12 MG/DL (7-18); CALCIUM LEVEL 8.8 MG/DL (8.5-10.1); CARBON DIOXIDE LEVEL 25 MEQ/L (21-32); CHLORIDE LEVEL 104 MEQ/L (98-107); CK-MB VALUE MASS < 1.0 NG/ML (<3.6); CPK CREATINE PHOSPHOKINASE 89 U/L (26-192); CREATININE FOR GFR 0.66 MG/DL (0.55-1.30); GLOMERULAR FILTRATION RATE > 60.0 (>60); GLUCOSE, FASTING 148 MG/DL (70-100); LIPASE 91 U/L (73-393); MB/CK RELATIVE INDEX 1.12 (< OR =4); POTASSIUM SERUM 3.5 MEQ/L (3.5-5.1); SODIUM LEVEL 135 MEQ/L (136-145); TOTAL PROTEIN 7.5 GM/DL (6.4-8.2); TROPONIN I < 0.02 NG/ML (< 0.10)
[2020-06-20 21:49] LABS: URINE PREG TEST NEGATIVE (NEGATIVE)
[2020-06-20] MEDS ORDERED: PEPC1TAB5 PO (22:35)
[2020-06-20] MEDS ORDERED: PANTOPRAZOLE 40MG VIAL (C9113 PER 1) IV ONE (23:15)
[2020-06-20] MEDS ORDERED: GASTROGRAFIN SOLUTION 30ML (Q9963) PO SCH (23:30)
[2020-06-20 23:35] VITALS: BP 141/96
[2020-06-20] MEDS: GASTROGRAFIN SOLUTION 30ML PO SCH (23:40)
[2020-06-21] MEDS: GASTROGRAFIN SOLUTION 30ML PO SCH (00:09)
[2020-06-21] MEDS ORDERED: ISOVUE-370 76% 100ML VIAL As Ordered ONE (00:51)
[2020-06-21] MEDS ORDERED: OMEP40CA97 PO (01:02)
--- NOTE | 2020-06-21 19:01 | ECGEPIP ---
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
== END 2020-06-21 04:06 | disposition left against medical advice (07) ==
LOC: M ED 19:45
DX: Z53.9 Procedure and treatment not carried out, unspecified reason (principal); K29.00 Acute gastritis without bleeding; I10 Essential (primary) hypertension; Z79.899 Other long term (current) drug therapy; Z88.0 Allergy status to penicillin; Z88.8 Allergy status to other drugs, medicaments and biological substances
CPT/HCPCS: 71045; 80048; 80076; 81001; 82550; 82553; 83690; 84703; 85025; 93005; 93041; 96361; 96374; 96375; 99285; C9113; J1885; J2405; Q9963

== ENCOUNTER 2020-09-15 01:59 | Emergency (ER) | payer OTHER ==
[~2020-09-15] VITALS: Ht 157.5 cm; Wt 91.8 kg
[~2020-09-15 01:59] MED LIST changes: -LISI-538; +LISI20TA33; +METO1TAB7 PO; +OMEP40CA97 PO; +PEPC1TAB5 PO
[2020-09-15 04:14] LABS: HEMATOCRIT 35.4 % (36.0-47.0); HEMOGLOBIN 11.4 g/dl (12.0-15.5); MEAN CORPUSCULAR HEMOGLOBIN 25.1 pg (27.0-33.0); MEAN CORPUSCULAR HGB CONC 32.2 g/dl (32.0-36.5); PLATELET COUNT, AUTOMATED 318 10^3/uL (150-450); RED BLOOD COUNT 4.54 10^6/uL (4.00-5.40)
[2020-09-15 04:57] LABS: ACETAMINOPHEN LEVEL 16.3 UG/ML (10.0-30.0); ALT/SGPT 26 U/L (12-78); AMPHETAMINES LEVEL URINE NEGATIVE (NEGATIVE); BARBITURATES URINE NEGATIVE (NEGATIVE); BENZODIAZEPINES URINE NEGATIVE (NEGATIVE); BILIRUBIN,DIRECT < 0.1 MG/DL (0.0-0.2); BILIRUBIN,TOTAL 0.1 MG/DL (0.2-1.0); BLOOD UREA NITROGEN 13 MG/DL (7-18); CALCIUM LEVEL 8.6 MG/DL (8.5-10.1); CANNABINOIDS URINE POSITIVE (NEGATIVE); CARBON DIOXIDE LEVEL 26 MEQ/L (21-32); CHLORIDE LEVEL 103 MEQ/L (98-107); COCAINE METABOLITE URINE NEGATIVE (NEGATIVE); CPK CREATINE PHOSPHOKINASE 103 U/L (26-192); CREATININE FOR GFR 0.82 MG/DL (0.55-1.30); ETHYL ALCOHOL (ETHANOL) < 0.003 % (0.000-0.010); GLOMERULAR FILTRATION RATE > 60.0 (>60); GLUCOSE, FASTING 183 MG/DL (70-100); METHADONE URINE NEGATIVE (NEGATIVE); OPIATES URINE NEGATIVE (NEGATIVE); PHENCYCLIDINE URINE NEGATIVE (NEGATIVE); POTASSIUM SERUM 3.9 MEQ/L (3.5-5.1); SALICYLATE LEVEL 2.2 MG/DL (5.0-30.0); SODIUM LEVEL 136 MEQ/L (136-145); TOTAL PROTEIN 7.4 GM/DL (6.4-8.2)
[2020-09-15 05:10] LABS: HCG, SERUM QUALITATIVE NEGATIVE (NEGATIVE)
[2020-09-15 06:00] VITALS: BP 145/90
[2020-09-15] MEDS ORDERED: HYDR-3363 PO (06:11)
== END 2020-09-15 06:29 | disposition home or self-care (01) ==
LOC: M ED 01:59
DX: F41.0 Panic disorder [episodic paroxysmal anxiety] (principal); I10 Essential (primary) hypertension; Z79.899 Other long term (current) drug therapy; Z88.0 Allergy status to penicillin; Z88.8 Allergy status to other drugs, medicaments and biological substances

== ENCOUNTER 2021-07-10 15:40 | Emergency (ER) | payer OTHER ==
[~2021-07-10] VITALS: Ht 157.5 cm; Wt 92.9 kg
[~2021-07-10 15:40] MED LIST changes: +DOXY-443 PO; -DOXY100C37 PO; +OMEP40CA4 PO; -OMEP40CA97 PO
[2021-07-10] MEDS ORDERED: BUSP15TA47 (15:55)
[2021-07-10] MEDS ORDERED: OMEP-221 (15:55)
--- NOTE | 2021-07-10 16:31 | REP ---
INDICATION: sudden onset headache, confusion COMPARISON: MRI dated 06/17/2019 TECHNIQUE: Axial noncontrast images from the skull base to the vertex with coronal reformations. This CT examination was performed using the following dose reduction techniques: Automated exposure control, adjustment of mA and/or kv according to the patient's size, and use of iterative reconstruction technique. FINDINGS: The ventricles, sulci, and cisterns are normal in position and appearance. Parra-white differentiation is maintained. No acute intracranial hemorrhage, mass/mass effect, pathology or trauma/injury. No evidence for acute infarction. No extra-axial fluid collection. Calvarium is intact. Paranasal sinuses and mastoid air cells are clear. IMPRESSION: Normal noncontrast head CT. No evidence for acute intracranial pathology or trauma/injury. <Electronically signed by David Singletary > 07/10/21 [id number]
[2021-07-10] MEDS ORDERED: RIZATRIPTAN BENZOATE 10 MG TAB PO PRN (16:50)
[2021-07-10] MEDS ORDERED: NS 1,000 ML IV ONE (16:50)
[2021-07-10 17:17] LABS: BASO % 0.1 % (0.0-1.0); EOS # 0.1 10^3/uL (0.0-0.5); EOS % 0.7 % (0.0-3.0); HEMATOCRIT 32.4 % (36.0-47.0); HEMOGLOBIN 10.1 g/dl (12.0-15.5); LYMPH # 1.9 10^3/uL (1.5-5.0); LYMPH % 21.3 % (24.0-44.0); MEAN CORPUSCULAR HEMOGLOBIN 22.8 pg (27.0-33.0); MEAN CORPUSCULAR HGB CONC 31.2 g/dl (32.0-36.5); MEAN CORPUSCULAR VOLUME 73.1 fl (80.0-96.0); MONO # 0.4 10^3/uL (0.0-0.8); MONO % 4.3 % (2.0-8.0); NEUTROPHILS # 6.4 10^3/uL (1.5-8.5); NEUTROPHILS % 73.3 % (36.0-66.0); PLATELET COUNT, AUTOMATED 336 10^3/uL (150-450); RED BLOOD COUNT 4.43 10^6/uL (4.00-5.40); WHITE BLOOD COUNT 8.8 10^3/uL (4.0-10.0)
[2021-07-10 17:25] LABS: BLOOD UREA NITROGEN 9 MG/DL (7-18); CALCIUM LEVEL 8.6 MG/DL (8.5-10.1); CARBON DIOXIDE LEVEL 27 MEQ/L (21-32); CHLORIDE LEVEL 103 MEQ/L (98-107); CREATININE FOR GFR 0.64 MG/DL (0.55-1.30); GLOMERULAR FILTRATION RATE > 60.0 (>60); GLUCOSE, FASTING 136 MG/DL (70-100); POTASSIUM SERUM 3.9 MEQ/L (3.5-5.1); SODIUM LEVEL 140 MEQ/L (136-145)
[2021-07-10 17:30] LABS: CK-MB VALUE MASS < 1.0 NG/ML (<3.6); CPK CREATINE PHOSPHOKINASE 67 U/L (26-192); MB/CK RELATIVE INDEX 1.49 (< OR =4)
[2021-07-10 18:26] LABS: RSV AMPLIFICATION NEGATIVE (NEGATIVE)
[2021-07-10 19:19] LABS: CK-MB VALUE MASS < 1.0 NG/ML (<3.6); CPK CREATINE PHOSPHOKINASE 63 U/L (26-192); MB/CK RELATIVE INDEX 1.59 (< OR =4)
--- NOTE | 2021-07-10 19:33 | ECGEPIP ---
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
--- NOTE | 2021-07-10 19:35 | ECGEPIP ---
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
[2021-07-10] MEDS ORDERED: ZOFR4TAB16 PO (19:36)
[2021-07-10 19:47] VITALS: BP 148/86
== END 2021-07-10 19:54 | disposition home or self-care (01) ==
LOC: M ED 15:40
DX: G43.909 Migraine, unspecified, not intractable, without status migrainosus (principal); F41.0 Panic disorder [episodic paroxysmal anxiety]; E86.0 Dehydration; I10 Essential (primary) hypertension; F32.9 Major depressive disorder, single episode, unspecified; K21.9 Gastro-esophageal reflux disease without esophagitis; Z82.3 Family history of stroke; Z84.89 Family history of other specified conditions; Z79.899 Other long term (current) drug therapy; Z88.0 Allergy status to penicillin; Z88.8 Allergy status to other drugs, medicaments and biological substances

== ENCOUNTER → 2022-05-31 | Outpatient (CLI) | payer OTHER ==
[~2022-05-31] MED LIST changes: +BUSP15TA47; -LABE100T4; +LABE100T6; +LOSA100T45 PO; -LOSA100T50 PO; +LOSA50TA28; -LOSA50TA88; +OMEP40CA5; +TIZA10TA PO; -TIZA4TAB4 PO; +ZOFR4TAB16 PO
[2022-05-31 16:28] LABS: HEMATOCRIT 33.7 % (36.0-47.0); HEMOGLOBIN 10.8 g/dl (12.0-15.5); MEAN CORPUSCULAR HEMOGLOBIN 24.3 pg (27.0-33.0); MEAN CORPUSCULAR VOLUME 75.9 fl (80.0-96.0); PLATELET COUNT, AUTOMATED 305 10^3/uL (150-450); RED BLOOD COUNT 4.44 10^6/uL (4.00-5.40); WHITE BLOOD COUNT 6.5 10^3/uL (4.0-10.0)
[2022-05-31 17:25] LABS: ALBUMIN 3.8 GM/DL (3.2-5.2); ALT/SGPT 18 U/L (12-78); BILIRUBIN,TOTAL 0.4 MG/DL (0.2-1.0); BLOOD UREA NITROGEN 7 MG/DL (7-18); CALCIUM LEVEL 9.1 MG/DL (8.5-10.1); CARBON DIOXIDE LEVEL 26 MEQ/L (21-32); CHLORIDE LEVEL 104 MEQ/L (98-107); CHOLESTEROL LEVEL 179 MG/DL (<200); CHOLESTEROL RISK RATIO 4.261 (<5); CREATININE FOR GFR 0.69 MG/DL (0.55-1.30); GLOMERULAR FILTRATION RATE > 60.0 (>60); GLUCOSE, FASTING 117 MG/DL (70-100); HDL CHOLESTEROL 42 MG/DL (>40); LDL CHOLESTEROL 106 MG/DL (<100); NON-HDL-C 137 MG/DL; POTASSIUM SERUM 4.1 MEQ/L (3.5-5.1); SODIUM LEVEL 136 MEQ/L (136-145); THYROID STIMULATING HORMONE 0.681 uIU/ML (0.358-3.740); TOTAL PROTEIN 7.2 GM/DL (6.4-8.2); TRIGLYCERIDES LEVEL 155 MG/DL (<150)
== END ==
LOC: M LAB 15:49
PROVIDERS: ATTEND Physician Assistant
DX: I10 Essential (primary) hypertension (principal)

== ENCOUNTER → 2022-11-17 | Outpatient (CLI) | payer OTHER ==
[2022-11-17 14:07] LABS: HEMATOCRIT 37.3 % (36.0-47.0); HEMOGLOBIN 12.7 g/dl (12.0-15.5); MEAN CORPUSCULAR HEMOGLOBIN 25.9 pg (27.0-33.0); PLATELET COUNT, AUTOMATED 368 10^3/uL (150-450); RED BLOOD COUNT 4.91 10^6/uL (4.00-5.40); WHITE BLOOD COUNT 9.3 10^3/uL (4.0-10.0)
[2022-11-17 14:38] LABS: ALBUMIN 4.1 G/DL (3.2-5.2); ALKALINE PHOSPHATASE 65 U/L (46-116); ALT/SGPT 17 U/L (7.0-40); AST/SGOT 11 U/L (<34); BILIRUBIN,TOTAL 0.4 MG/DL (0.3-1.2); BLOOD UREA NITROGEN 11 MG/DL (9-23); CALCIUM LEVEL 9.3 MG/DL (8.5-10.1); CARBON DIOXIDE LEVEL 27 MMOL/L (20-31); CHLORIDE LEVEL 101 MMOL/L (98-107); CHOLESTEROL LEVEL 200 MG/DL (<200); CHOLESTEROL RISK RATIO 4.56 (<5); GLOMERULAR FILTRATION RATE > 60.0 (>60); GLUCOSE, FASTING 98 MG/DL (60-100); HDL CHOLESTEROL 43.8 MG/DL (>40); IRON (FE) 35 UG/DL (50-170); LDL CHOLESTEROL 130.4 MG/DL (<100); NON-HDL-C 156.2 MG/DL; PERCENT SATURATION 7.8 % (13.2-45.0); POTASSIUM SERUM 3.8 MMOL/L (3.5-5.1); SODIUM LEVEL 136 MMOL/L (136-145); TOTAL IRON BINDING CAPACITY 448 UG/DL (250-425); TOTAL PROTEIN 7.5 G/DL (5.7-8.2); TRIGLYCERIDES LEVEL 129 MG/DL (<150)
[2022-11-17 14:40] LABS: THYROID STIMULATING HORMONE 0.768 uIU/ML (0.55-4.78)
[2022-11-17 14:41] LABS: FERRITIN 2.8 NG/ML (7.3-270.7)
== END ==
LOC: M RAD 11:49
PROVIDERS: ATTEND Physician Assistant
DX: D64.9 Anemia, unspecified (principal); N92.0 Excessive and frequent menstruation with regular cycle; I10 Essential (primary) hypertension

== ENCOUNTER 2023-05-04 17:37 | Emergency (ER) | payer OTHER ==
[~2023-05-04] VITALS: Ht 157.5 cm; Wt 81.8 kg
[~2023-05-04 17:37] MED LIST changes: +ETON1VAG7 VA; -LOSA100T45 PO; +LOSA100T46 PO; -NIFE60TA40; +NIFE60TA96; -NUVAMIS2 VA
[2023-05-04 17:39] VITALS: BP 170/100; TEMP 99.5; O2SAT 100
[2023-05-04] MEDS ORDERED: LISI10TA22 (18:09)
[2023-05-04 18:36] LABS: BASO % 0.3 % (0.0-1.0); EOS # 0.1 10^3/uL (0.0-0.5); EOS % 0.9 % (0.0-3.0); HEMATOCRIT 34.8 % (36.0-47.0); HEMOGLOBIN 11.6 g/dl (12.0-15.5); LYMPH # 2.2 10^3/uL (1.5-5.0); LYMPH % 31.9 % (24.0-44.0); MEAN CORPUSCULAR HEMOGLOBIN 24.5 pg (27.0-33.0); MEAN CORPUSCULAR HGB CONC 33.3 g/dl (32.0-36.5); MEAN CORPUSCULAR VOLUME 73.6 fl (80.0-96.0); MONO # 0.4 10^3/uL (0.0-0.8); MONO % 5.4 % (2.0-8.0); NEUTROPHILS # 4.2 10^3/uL (1.5-8.5); NEUTROPHILS % 61.4 % (36.0-66.0); PLATELET COUNT, AUTOMATED 365 10^3/uL (150-450); RED BLOOD COUNT 4.73 10^6/uL (4.00-5.40); WHITE BLOOD COUNT 6.8 10^3/uL (4.0-10.0)
[2023-05-04 18:49] LABS: INR 1.06; PROTHROMBIN TIME 13.5 SECONDS (12.5-14.5)
[2023-05-04 19:04] LABS: LIPASE 31 U/L (12-53)
[2023-05-04 19:06] LABS: ALKALINE PHOSPHATASE 78 U/L (46-116); ALT/SGPT 17 U/L (7.0-40); AST/SGOT 12 U/L (<34); BILIRUBIN,DIRECT < 0.1 MG/DL (<0.4); BILIRUBIN,TOTAL 0.3 MG/DL (0.3-1.2); BLOOD UREA NITROGEN 9 MG/DL (9-23); CALCIUM LEVEL 9.2 MG/DL (8.5-10.1); CARBON DIOXIDE LEVEL 26 MMOL/L (20-31); CHLORIDE LEVEL 103 MMOL/L (98-107); CK-MB VALUE MASS < 1.0 NG/ML (<3.6); CPK CREATINE PHOSPHOKINASE 84 U/L (34-145); CREATININE FOR GFR 0.59 MG/DL (0.55-1.30); GLOMERULAR FILTRATION RATE > 60.0 (>60); GLUCOSE, FASTING 106 MG/DL (60-100); MB/CK RELATIVE INDEX 1.19 (< OR =4); POTASSIUM SERUM 3.6 MMOL/L (3.5-5.1); SODIUM LEVEL 137 MMOL/L (136-145); TOTAL PROTEIN 7.6 G/DL (5.7-8.2)
== END 2023-05-04 19:48 | disposition left against medical advice (07) ==
LOC: M ED 17:37
DX: Z53.21 Procedure and treatment not carried out due to patient leaving prior to being seen by health care provider (principal)

== ENCOUNTER 2024-07-30 12:44 | Emergency (ER) | payer OTHER ==
[~2024-07-30] VITALS: Ht 157.5 cm; Wt 97.3 kg
[~2024-07-30 12:44] MED LIST changes: +DOXY-441 PO; -DOXY-443 PO; +LISI10TA22; +ONDA-282 PO; -ONDA4TAB6 PO
[2024-07-30 12:46] VITALS: TEMP 98.1
[2024-07-30 13:47] LABS: BASO % 0.7 % (0.0-1.0); EOS # 0.1 10^3/uL (0.0-0.5); EOS % 2.3 % (0.0-3.0); HEMATOCRIT 27.2 % (36.0-47.0); HEMOGLOBIN 9.1 g/dl (12.0-15.5); LYMPH # 1.4 10^3/uL (1.5-5.0); LYMPH % 24.8 % (24.0-44.0); MEAN CORPUSCULAR HEMOGLOBIN 26.4 pg (27.0-33.0); MEAN CORPUSCULAR HGB CONC 33.5 g/dl (32.0-36.5); MEAN CORPUSCULAR VOLUME 78.8 fl (80.0-96.0); MONO # 0.4 10^3/uL (0.0-0.8); MONO % 7.3 % (2.0-8.0); NEUTROPHILS # 3.6 10^3/uL (1.5-8.5); NEUTROPHILS % 63.8 % (36.0-66.0); PLATELET COUNT, AUTOMATED 368 10^3/uL (150-450); RED BLOOD COUNT 3.45 10^6/uL (4.00-5.40); WHITE BLOOD COUNT 5.6 10^3/uL (4.0-10.0)
[2024-07-30 14:10] LABS: LIPASE 26 U/L (12-53)
[2024-07-30 14:12] LABS: ALBUMIN 3.5 G/DL (3.2-5.2); ALKALINE PHOSPHATASE 67 U/L (35-104); ALT/SGPT 26 U/L (7.0-40); AST/SGOT 14 U/L (<34); BILIRUBIN,DIRECT 0.1 MG/DL (<0.4); BILIRUBIN,TOTAL 0.4 MG/DL (0.3-1.2); BLOOD UREA NITROGEN 14 MG/DL (9-23); CALCIUM LEVEL 9.5 MG/DL (8.5-10.1); CARBON DIOXIDE LEVEL 27 MMOL/L (20-31); CHLORIDE LEVEL 102 MMOL/L (98-107); CK-MB VALUE MASS < 1.0 NG/ML (<3.6); CPK CREATINE PHOSPHOKINASE 36 U/L (34-145); CREATININE FOR GFR 0.54 MG/DL (0.55-1.30); GLOMERULAR FILTRATION RATE > 60.0 (>58); GLUCOSE, FASTING 127 MG/DL (60-100); MB/CK RELATIVE INDEX 2.77 (< OR =4); POTASSIUM SERUM 3.5 MMOL/L (3.5-5.1); SODIUM LEVEL 138 MMOL/L (136-145); TOTAL PROTEIN 7.1 G/DL (5.7-8.2)
[2024-07-30 14:14] LABS: THYROID STIMULATING HORMONE 1.232 uIU/ML (0.55-4.78)
[2024-07-30 14:59] LABS: CK-MB VALUE MASS < 1.0 NG/ML (<3.6)
[2024-07-30 15:01] LABS: CPK CREATINE PHOSPHOKINASE 29 U/L (34-145); MB/CK RELATIVE INDEX 3.44 (< OR =4)
[2024-07-30] MEDS: ACETAMINOPHEN *IV* 1,000 MG in IV 1 EA IV ONE (15:03)
[2024-07-30] MEDS ORDERED: ISOVUE-370 76% 100ML VIAL As Ordered ONE (16:15)
[2024-07-30] MEDS: hydrALAZINE 20MG/ML 1ML VIAL IV ONE ×2 (16:15→17:45)
[2024-07-30] MEDS: LORazepam 2 MG/ML 1ML VIAL IV STA (17:44)
[2024-07-30 17:45] VITALS: BP 173/81
[2024-07-30] MEDS ORDERED: NS (Normal Saline) 0.9% 1,000 ML IV ONE (20:00)
[2024-07-30] MEDS ORDERED: ACETAMINOPHEN 500 MG TAB PO ONE (20:00)
[2024-07-30] MEDS: NS 500 ML IV ONE (20:10)
[2024-07-30] MEDS: diphenhydrAMINE 50MG/ML VIAL IV ONE (20:18)
[2024-07-30] MEDS: KETOROLAC 30 MG/ML 1ML VIAL IV ONE (20:18)
[2024-07-30] MEDS: ONDANSETRON 4MG 2ML VIAL IV ONE (20:18)
[2024-07-30] MEDS: IPRATROPIUM 0.5MG/ALBUTEROL 2.5MG INH SOL UD 3ML (DUONEB) NEB ONE (20:20)
[2024-07-30] MEDS ORDERED: LISI20TA37 PO (20:38)
[2024-07-30] MEDS ORDERED: TIZA10TA PO (20:38)
[2024-07-30] MEDS ORDERED: HOME MED LIST COMPLETE! XX SCH (20:40)
[2024-07-30] MEDS ORDERED: ACETAMINOPHEN 500 MG TAB PO PRN (21:45)
[2024-07-30] MEDS ORDERED: tiZANidine 4 MG TAB PO PRN (21:45)
[2024-07-30] MEDS: FUROSEMIDE 100MG/10ML VIAL IV ONE (22:25)
[2024-07-31] MEDS: ACETAMINOPHEN 500 MG TAB PO PRN (02:38)
[2024-07-31 03:09] VITALS: BP 135/67; O2SAT 98
[2024-07-31] MEDS ORDERED: METOPROLOL SUCC (TopROL XL) 50MG **XL** TAB PO SCH (09:00)
== END 2024-07-31 04:04 | disposition home or self-care (01) ==
LOC: M ED 12:44
DX: I10 Essential (primary) hypertension (principal); R51.9 Headache, unspecified; R07.9 Chest pain, unspecified; F41.9 Anxiety disorder, unspecified; Z79.899 Other long term (current) drug therapy; Z88.0 Allergy status to penicillin; Z88.8 Allergy status to other drugs, medicaments and biological substances
CPT/HCPCS: 70450; 71045; 71260; 80048; 80076; 81002; 82550; 82553; 83690; 84443; 84484; 85025; 93005; 96374; 96375; 96376; 99285; J0131; J0360; J1200; J1885; J1940; J2060; J2405; Q9967

== ENCOUNTER 2025-03-06 17:36 | Emergency (ER) | payer OTHER ==
[~2025-03-06] VITALS: Ht 157.5 cm; Wt 81.8 kg
[~2025-03-06 17:36] MED LIST changes: +LISI20TA37 PO
[2025-03-06 19:34] VITALS: BP 131/84; TEMP 99.1; O2SAT 99
[2025-03-07] MEDS ORDERED: KETO-204 PO (12:43)
== END 2025-03-06 20:50 | disposition left against medical advice (07) ==
LOC: M ED 17:36
DX: Z53.21 Procedure and treatment not carried out due to patient leaving prior to being seen by health care provider (principal)

== ENCOUNTER 2025-03-07 09:50 | Emergency (ER) | payer OTHER, SELFPAY ==
[~2025-03-07] VITALS: Ht 157.5 cm; Wt 180.0 kg
[2025-03-07] MEDS ORDERED: KETO-204 PO (12:43)
[2025-03-07 13:25] VITALS: BP 160/90; TEMP 97.9; O2SAT 99
== END 2025-03-07 13:36 | disposition home or self-care (01) ==
LOC: M ED 09:50
DX: Q66.89 Other specified congenital deformities of feet (principal); X50.1XXA Overexertion from prolonged static or awkward postures, initial encounter; Y92.89 Other specified places as the place of occurrence of the external cause; I10 Essential (primary) hypertension; Z79.899 Other long term (current) drug therapy; Z88.0 Allergy status to penicillin; Z88.8 Allergy status to other drugs, medicaments and biological substances